=== PATIENT | female | born 1975 | race Caucasian/White ===

== ENCOUNTER 2020-05-13 17:35 | Observation (INO) ==
[2020-05-13] MEDS ORDERED: *HR* FentaNYL (PF) 100 MCG/2 ML VIAL IVP ONE (18:27)
[2020-05-13] MEDS ORDERED: Ondansetron 4 MG/2 ML VIAL IVP ONE (18:27)
[2020-05-13] MEDS ORDERED: 0.9 % Sodium Chloride 1,000 ML IVC ONE (18:27)
[2020-05-13 18:57] LABS: Basophils % 0.2 %; Eosinophils # 0.1 K/mcL (0.0-0.6); Hematocrit 36.4 % (35.3-44.9); Hemoglobin 11.8 g/dL (11.5-15.4); Immature Granulocytes % 0.2 % (0-4); Lymphocytes % 35.6 %; Mean Corpuscular HGB Conc 32.4 g/dL (31.6-35.5); Mean Corpuscular Hemoglobin 28.3 pg (28.0-33.3); Mean Corpuscular Volume 87.3 fL (83.0-100.0); Mean Platelet Volume 10.3 fL (9.4-12.4); Monocytes # 0.6 K/mcL (0.0-1.3); Monocytes % 7.3 %; Neutrophils # 4.6 K/mcL (1.6-8.9); Platelet Count 206 K/mcL (140-400); Red Blood Count 4.17 M/mcL (3.82-4.97); Red Cell Distribution Width 13.4 % (11.5-14.5); Segmented Neutrophils % 55.7 %; White Blood Count 8.3 K/mcL (4.3-11.1)
[2020-05-13 19:01] LABS: Bacteria,Urine Few per hpf (None-Few); Bilirubin,Urine Negative (Negative); Blood,Urine Negative (Negative); Clarity,Urine Ex.Turbid (Clear); Color,Urine Yellow (Yellow); Glucose,Urine (UA) Normal (Normal); Ketones,Urine Negative (Negative); Leukocyte Esterase,Urine Trace (Negative); Mucus,Urine Many per lpf (None-Few); Nitrite,Urine Negative (Negative); PH,Urine 5.5 pH Units (5.0-8.0); Protein,Urine 30 mg/dL (Neg-Trace); RBC,Urine 0-3 per hpf (0-3); Specific Gravity,Urine > 1.030 (1.010-1.025); Squamous Epithelial Cell,Urine Moderate per hpf (None-Few); Urobilinogen,Urine Normal (Normal)
[2020-05-13 19:19] LABS: Alanine Aminotransferase 15 Units/L (7-52); Albumin 4.4 g/dL (3.5-5.7); Albumin/Globulin Ratio 1.5 (1.1-2.2); Alkaline Phosphatase 60 Units/L (34-104); Aspartate Amino Transferase 16 Units/L (13-39); BUN/Creatinine Ratio 26 (6-26); Bilirubin,Direct 0.1 mg/dL (0.0-0.2); Bilirubin,Indirect 0.7 mg/dL (0.0-1.0); Bilirubin,Total 0.8 mg/dL (0.3-1.0); Blood Urea Nitrogen 20 mg/dL (6-20); Calcium 9.2 mg/dL (8.6-10.3); Carbon Dioxide 26 mEq/L (23-29); Chloride 105 mEq/L (98-107); Glucose 109 mg/dL (70-105); Lipase 28 Units/L (11-82); Osmolality,Calculated 289 (280-300); Potassium 3.4 mEq/L (3.5-5.1); Sodium 138 mEq/L (136-145); Total Protein 7.4 g/dL (6.4-8.9); eGFR For African Americans > 60 (> 60); eGFR For Non-African Americans > 60 (> 60)
[2020-05-13] MEDS ORDERED: Ondansetron 4 MG/2 ML VIAL IVP PRN (20:21)
[2020-05-13] MEDS ORDERED: *HR* Metoprolol 5 MG/5 ML VIAL IVP PRN (20:21)
[2020-05-13] MEDS ORDERED: 0.9 % Sodium Chloride 1,000 ML IVC SCH (20:30)
[2020-05-13] MEDS: *HR* OxyCODONE/APAP 10/325 TABLET PO PRN (22:05)
[2020-05-14] MEDS: *HR* OxyCODONE/APAP 10/325 TABLET PO PRN (03:12)
[2020-05-14] MEDS ORDERED: Famotidine 20 MG/2 ML VIAL IVP ONE (08:29)
[2020-05-14] MEDS ORDERED: Acetaminophen IV 1,000 MG/100 ML BAG IVPB ONE ×2 (08:30→09:15)
[2020-05-14] MEDS ORDERED: Neostigmine Methylsulfate 3 MG/3 ML SYRINGE ONE (09:13)
[2020-05-14] MEDS ORDERED: *HR* FentaNYL (PF) 100 MCG/2 ML VIAL ONE (09:14)
[2020-05-14] MEDS ORDERED: *HR* Midazolam HCl 2 MG/2 ML VIAL ONE (09:14)
[2020-05-14] MEDS ORDERED: Ondansetron 4 MG/2 ML VIAL ONE (09:14)
[2020-05-14] MEDS ORDERED: Lidocaine -MPF 2% 2 ML VIAL ONE (09:14)
[2020-05-14] MEDS ORDERED: *HR* Propofol 200 MG/20 ML VIAL IVP ONE (09:14)
[2020-05-14] MEDS ORDERED: *HR* Rocuronium Bromide 50 MG/5 ML VIAL ONE (09:14)
[2020-05-14] MEDS ORDERED: Dexamethasone 4 MG/ML VIAL ONE (09:14)
[2020-05-14] MEDS ORDERED: *HR* Succinylcholine 200 MG/10 ML VIAL IVP ONE (09:14)
[2020-05-14] MEDS ORDERED: Clindamycin 900 MG/50 ML 900 MG/50 ML IV.SOLN IVPB ONE (09:25)
[2020-05-14] MEDS ORDERED: Bupivacaine/EPI 1:200k 0.5%PF 10 ML VIAL ONE (09:34)
[2020-05-14] MEDS ORDERED: *HR* Promethazine 25 MG/ML VIAL IVP PRN (09:42)
[2020-05-14] MEDS ORDERED: Ondansetron 4 MG/2 ML VIAL IVP ONE (09:42)
[2020-05-14] MEDS: *HR* HYDROmorphone PF 0.5 MG/0.5 ML SYRINGE IVP PRN ×2 (11:58→12:13)
[2020-05-14] MEDS ORDERED: Ketorolac 30 MG/ML VIAL IVP ONE ×2 (12:15)
[2020-05-14] MEDS ORDERED: Ondansetron 4 MG/2 ML VIAL IVP PRN (13:06)
[2020-05-14] MEDS ORDERED: *HR* OxyCODONE/APAP 10/325 TABLET PO PRN (13:06)
[2020-05-14 16:19] VITALS: BP 120/68
== END 2020-05-14 18:59 | disposition home or self-care (01) ==
LOC: EMEROOARM 17:35 → 3ANU 17:35
PROVIDERS: ADMIT Surgery; ATTEND Surgery